=== PATIENT | female | born 1975 | race Caucasian/White ===

== ENCOUNTER 2019-01-20 05:58 | Day surgery (SDC) | payer OTHER ==
[~2019-01-20 05:58] MED LIST: TYLENOL-CODEINE1 TAB PO
[2019-01-20] MEDS ORDERED: Tylenol #3 PO (08:38)
[2019-01-20] MEDS ORDERED: DOXYCYCLINE HY100 M3 PO (08:38)
== END 2019-01-20 13:45 | disposition home or self-care (01) ==
LOC: CIR.AMB 05:58
DX: N84.0 Polyp of corpus uteri (principal); N92.0 Excessive and frequent menstruation with regular cycle; D25.0 Submucous leiomyoma of uterus